=== PATIENT | male | born 1950 | race American Indian/Alaskan Native ===

== ENCOUNTER 2018-11-09 09:25 | Outpatient (CLI) | payer BC ==
[2018-11-09 10:07] LABS: Blood Urea Nitrogen 14 mg/dL (9-20)
--- NOTE | 2018-11-09 12:00 | Magnetic Resonance Report ---
MRI ABDOMEN WITH AND WITHOUT CONTRAST INDICATION: Prostate cancer. COMPARISON: August 2018 CT. FINDINGS: Multiplanar and multisequence MRI of the abdomen performed before and after 18 mL of MultiHance intravenously. Numerous T2 hyperintense hepatic cysts/biliary hamartomas again noted, the largest 2.2 cm in the inferior right hepatic lobe near the tip, axial series 5, image 24. Otherwise unremarkable liver, spleen, gallbladder, adrenals, aorta, IVC and kidneys. A 0.4 cm left upper renal cortical possible cyst posteriorly. No ascites or definite significant adenopathy. Normal imaged bowel, bladder and muscle signal. Specifically, pancreas appears stable without abnormal pancreatic duct dilation. A 1.3 x 0.7 cm cystic focus in the pancreatic body again noted, axial image 20, series 5 without definite intrinsic septation, nodularity or enhancement. A tiny 5 mm possible lipoma in the pancreatic head posteromedially may also be noted, axial image 24. Imaged lung bases again suggest mild cardiomegaly and mildly elevated right hemidiaphragm. CONCLUSION: No acute MRI abnormality with various findings again noted, stable since August 2018 CT, including a small pancreatic body cyst, numerous hepatic cysts and other findings at the imaged lung bases, amongst others, as above. Thank you for the opportunity to participate in this patient's care.
== END 2018-11-09 09:26 | disposition home or self-care (01) ==
LOC: MRI 09:25
PROVIDERS: ATTEND Radiology Radiation Oncology
DX: C61 Malignant neoplasm of prostate (principal); K86.2 Cyst of pancreas; K76.89 Other specified diseases of liver
CPT/HCPCS: 36415; 74183; 82565; 84520; A9577

== ENCOUNTER 2019-02-07 07:51 | Outpatient (CLI) | payer BC ==
[2019-02-07 09:25] LABS: Alanine Aminotransferase 24 units/L (7-56); Albumin 4.4 g/dL (3.9-5); BUN/Creatinine Ratio 11; Blood Urea Nitrogen 11 mg/dL (9-20); Calcium 9.4 mg/dL (8.4-10.2); Chol/HDL Ratio 4.66 %; HDL Cholesterol 51 mg/dL (40-59); Hemolysis Index 2; LDL Cholesterol,Direct 183 mg/dL (50-130)
[2019-02-07 09:48] LABS: Free T4 (Free Thyroxine) 1.32 ng/dL (0.76-1.46)
[2019-02-07 09:57] LABS: Hematocrit 36.2 % (35.5-45.6); Hemoglobin 11.5 gm/dl (11.8-15.2); Mean Corpuscular HGB Conc 32 % (32-34); Platelet Count 193 K/mm3 (140-440); Red Blood Count 5.24 M/mm3 (3.65-5.03); Red Cell Distribution Width 14.5 % (13.2-15.2)
[2019-02-07 10:08] LABS: Mean Corpuscular Volume 69 fl (84-94)
--- NOTE | 2019-02-07 11:08 | Vascular Lab Report ---
PROCEDURE: VL VENOUS DUPLEX LE BILAT TECHNIQUE: Duplex Doppler ultrasound examination of the venous system of the right leg and left leg HISTORY: PROSTATE CANCER COMPARISONS: None FINDINGS: RIGHT LEG: Normal compressibility, vascular patency, and augmentation are present diffusely throughout the visua lized portion of the deep veins. No abnormal intraluminal echoes are visualized to suggest deep vein thrombus. A nonspecific popliteal fossa hypoechoic focus is suggestive of a fluid collection measuring 1.5 x 4. 3 cm. Color Doppler reveals no internal vascularity in this lesion. 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 No ultrasound evidence of DVT in the right leg LEFT LEG: Normal compressibility, vascular patency, and augmentation are present diffusely throughout the visua lized portion of the deep veins. No abnormal intraluminal echoes are visualized to suggest deep vein thrombus. IMPRESSION: No ultrasound evidence of DVT in the left leg This document is electronically signed by Brennon Winchester MD., Feb 07 2019 11:06:17 AM [facility]
--- NOTE | 2019-02-07 11:13 | Cat Scan Report ---
CTA CHEST INDICATION: Chest pain. COMPARISON: Prior relevant abdomen CT and MRI images. FINDINGS: Chest CTA performed following intravenous administration of 100 cc of Omnipaque 350. Rotational MIP's also obtained. Slight cardiomegaly. No effusions or size significant adenopathy. Proximal ascending aortic caliber 3.9 cm. No dissection. No suspicious pulmonary arterial filling defects. Patent central airway. Normal imaged thyroid. Slight biapical scarring. Nonspecific distal esophageal wall prominence/thickening, not excluded for gastroesophageal reflux and/or hiatal hernia, amongst others. Right hemidiaphragm approximately 3 cm higher than the left. Imaged upper abdomen again demonstrates innumerable hepatic hypodensities, some subcentimeter/indeterminate while the largest approximately 2.7 x 1.5 cm in the right hepatic lobe inferiorly towards the tip measures 6HU, axial image 121, series 2. Subtle pancreatic body hypodensity/cyst may now measure approximately 1 x 0.8 cm as on axial image 109, series 2, previously slightly larger. Multilevel spinal degenerative changes, including prominent/larger osteophytes inferiorly as also L2-L3 disc degeneration. CONCLUSION: No acute chest CT abnormality or evidence of pulmonary embolism with various other incidental findings, as detailed above. Thank you for the opportunity to participate in this patient's care.
== END 2019-02-07 07:52 | disposition home or self-care (01) ==
LOC: CT 07:51
PROVIDERS: ATTEND Internal Medicine
DX: R07.9 Chest pain, unspecified (principal); M79.605 Pain in left leg; M79.604 Pain in right leg; C61 Malignant neoplasm of prostate; M47.819 Spondylosis without myelopathy or radiculopathy, site unspecified
CPT/HCPCS: 36415; 71275; 80053; 80061; 84153; 84439; 84443; 85027; 85379; 93970; Q9967

== ENCOUNTER 2019-07-07 09:07 | Emergency (ER) | payer BC, OTHER ==
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
[2019-07-07 12:20] VITALS: BP 115/70
== END 2019-07-07 12:20 | disposition home or self-care (01) ==
LOC: ED 09:07
DX: S16.1XXA Strain of muscle, fascia and tendon at neck level, initial encounter (principal); M79.10 Myalgia, unspecified site; Z79.899 Other long term (current) drug therapy; Z90.49 Acquired absence of other specified parts of digestive tract; V89.2XXA Person injured in unspecified motor-vehicle accident, traffic, initial encounter; Y93.89 Activity, other specified; Y92.488 Other paved roadways as the place of occurrence of the external cause; Y99.8 Other external cause status
CPT/HCPCS: 71046; 72040; 99283